=== PATIENT | male | born 1995 | race Caucasian/White ===

== ENCOUNTER 2018-03-13 15:46 | Emergency (ER) | payer OTHER ==
[2018-03-13 15:52] VITALS: BP 143/114
--- NOTE | 2018-03-13 16:06 | EDPHY ---
H & P Stated Complaint: Mechanical fall, facial laceration, knee abrasion Time Seen by Provider: 03/13/18 16:06 HPI/ROS: CHIEF COMPLAINT: Mechanical fall, facial laceration, knee abrasion HISTORY OF PRESENT ILLNESS: The patient presents to the ED after mechanical fall. The patient tripped while walking earlier today. He fell forward striking his face. The patient sustained a laceration in his right eyebrow. The patient denies any loss of consciousness. He has no complaints of headache or neck pain. The patient does have a mild abrasion to his right knee. The patient takes no blood thinners. He denies significant past medical history. The patient's tetanus shot is up-to-date. REVIEW OF SYSTEMS: A comprehensive 10 point review of systems is otherwise negative aside from elements mentioned in the history of present illness. Source: Patient Exam Limitations: No limitations - Personal History Current Tetanus Diphtheria and Acellular Pertussis (TDAP): Yes - Medical/Surgical History Hx Asthma: No Hx Chronic Respiratory Disease: No Hx Diabetes: No Hx Cardiac Disease: No Hx Renal Disease: No Hx Cirrhosis: No Hx Alcoholism: No Hx HIV/AIDS: No Hx Splenectomy or Spleen Trauma: No Other PMH: HTN - Social History Smoking Status: Current some day smoker - Physical Exam Exam: General Appearance: Alert, no distress Head: 2 cm laceration noted to the right eyebrow Eyes: Pupils equal, round, reactive ENT, Mouth: No hemotympanum, no oral trauma Neck: Nontender, trachea midline, cleared via nexus criteria Respiratory: No chest wall tender, subcutaneous air, lungs clear bilaterally Cardiovascular: Regular rate and rhythm Abdomen: Abdomen is soft and nontender, pelvis stable Skin: Abrasion to right knee Back: No midline T/L/S pain Extremities: Nontender, full range of motion Neurological: A&Ox3, normal motor function, normal sensory exam Constitutional: Initial Vital Signs Temperature (C) 36.9 C 03/13/18 15:50 Heart Rate 144 H 03/13/18 15:50 Respiratory Rate 20 03/13/18 15:50 Blood Pressure 143/114 H 03/13/18 15:50 O2 Sat (%) 92 03/13/18 15:50 O2 Delivery Mode Room Air Allergies/Adverse Reactions: No Known Allergies Allergy (Unverified 03/13/18 15:49) Home Medications: Medication Instructions Recorded NK [No Known Home Meds] 03/13/18 Medical Decision Making Procedures: Procedure: Laceration repair. Verbal consent was obtained from the patient. The 2 cm laceration on the right eyebrow was anesthetized using lidocaine. The wound was irrigated per protocol , draped and explored to its base with a gloved finger. It was a deep laceration with no galea involvement. The wound was repaired with in a 2 layer technique. 6 0 Vicryl sutures were buried x2. The superficial skin layer was then closed with 6 0 Ethilon sutures. The wound repair was complex. The procedure was performed by myself. ED Course/Re-evaluation: The patient presents to the ED with a complex deep facial laceration which was repaired by myself. The patient has superficial abrasion to his knee. The patient was tachycardic upon arrival but had been drinking earlier today. His tachycardia did resolve in the emergency department. The patient's tetanus shot is up-to-date. Patient has no evidence of a closed head injury or cervical spine injury. No additional traumatic injuries detected on exam. Patient will be discharged home with instructions to return to the emergency department for any headache, neck pain, new traumatic complaints or other concerns. Plan will be for suture removal in 5 days. Differential Diagnosis: Differential diagnosis considered includes facial bone fracture, facial laceration, closed head injury Departure - Departure Disposition: Home, Routine, Self-Care Clinical Impression: Facial laceration Qualifiers: Encounter type: initial encounter Qualified Code(s): S01.81XA - Laceration without foreign body of other part of head, initial encounter Abrasion of right knee Qualifiers: Encounter type: initial encounter Qualified Code(s): S80.211A - Abrasion, right knee, initial encounter Condition: Good Instructions: Care For Your Stitches (DC), Laceration (ED) Additional Instructions: 1. Apply antibiotic ointment to your abrasion 2 times a day for the next 4 days. 2. Return to the ED in 5 days for suture removal. 3. Return to the ED sooner for increasing pain, headache, vomiting or other concerns. This may be the sign of a more serious head injury.
== END 2018-03-13 16:40 | disposition home or self-care (01) ==
PROC: 0HQ1XZZ Repair Face Skin, External Approach (ICD-10-PCS; principal; 2018-03-13)
DX: S01.81XA Laceration without foreign body of other part of head, initial encounter (principal); S80.211A Abrasion, right knee, initial encounter; W01.0XXA Fall on same level from slipping, tripping and stumbling without subsequent striking against object, initial encounter; Y93.01 Activity, walking, marching and hiking; Y92.9 Unspecified place or not applicable; Y99.9 Unspecified external cause status